=== PATIENT | male | born 1995 | race Native Hawaiian/Other Pacific Islander ===

== ENCOUNTER 2021-09-09 09:27 | Emergency (ER) | payer SELFPAY | END 2021-09-09 12:19 | disposition home or self-care (01) | LOC: CSHERS 09:27 | DX: R19.7 Diarrhea, unspecified (principal); R10.13 Epigastric pain | CPT/HCPCS: 99283 ==

== ENCOUNTER 2021-09-25 17:37 | Emergency (ER) | payer SELFPAY ==
[~2021-09-25 17:37] MED LIST: Iopamidol 300 61% 100 ML VIAL FS ONE
[2021-09-25 18:40] LABS: #Basophils 0.1 10x3/uL (0.0-0.2); #Eosinphils 0.2 10x3/uL (0.0-0.5); #Neutrophils 9.8 10x3/uL (1.5-8.4); %Basophils 0.5 % (0.0-2.0); %Eosinophils 1.7 % (0.0-6.0); %Lymphocytes 12.8 % (18.0-47.0); %Monocytes 7.8 % (0.0-10.0); Hemoglobin 14.4 g/dL (13.5-17.5); Mean Corpuscular HGB CONC 33.9 g/dL (32.0-36.0); Mean Corpuscular Volume 85.7 fl (81.2-95.1); Mean Platelet Volume 9.3 fl (7.4-10.4); Platelet Count 261 10x3/uL (150-450); RBC Distribution Width 11.9 % (11.5-14.5); Red Blood Cell (RBC) Count 4.96 10x6/uL (4.32-5.72); White Blood Cell (WBC) Count 12.8 10x3/uL (3.5-10.5)
[2021-09-25] MEDS ORDERED: Acetaminophen 500 MG TAB ONE (18:42)
[2021-09-25 18:54] LABS: ALT (SGPT) 12 U/L (8-55); AST (SGOT) 17 U/L (5-34); Albumin 4.5 g/dL (3.5-5.0); Alkaline Phosphatase 54 U/L (40-110); Anion Gap 17 mmol/L (10-20); BUN (Urea Nitrogen) 14 mg/dL (8.9-20.6); Bilirubin, Total 0.7 mg/dL (0.2-1.2); Calc. Creatinine Clearance 0 mL/min (70-130); Calcium 9.3 mg/dL (7.8-10.44); Carbon Dioxide 26 mmol/L (22-29); Chloride 102 mmol/L (98-107); Globulin 3.6 g/dL (2.4-3.5); Glucose 101 mg/dL (70-105); Potassium 3.7 mmol/L (3.5-5.1); Protein, Total 8.1 g/dL (6.0-8.3); Sodium 141 mmol/L (136-145)
[2021-09-25] MEDS ORDERED: Ketorolac Tromethamine 30 MG/ML VIAL ONE (20:38)
[2021-09-25] MEDS ORDERED: Clindamycin 150 MG CAP ONE (20:39)
== END 2021-09-25 20:42 | disposition home or self-care (01) ==
LOC: CSHERS 17:37
DX: K04.7 Periapical abscess without sinus (principal); K13.0 Diseases of lips
CPT/HCPCS: 70487; 80053; 85025; 96374; J1885